=== PATIENT | male | born 1965 | race Caucasian/White ===

== ENCOUNTER 2022-04-07 22:43 | Emergency (ER) | payer BC, OTHER ==
[2022-04-07 22:51] VITALS: BP 140/100; PULSE 79; TEMP 98.4; BMI 30.8
== END 2022-04-07 23:43 | disposition home or self-care (01) ==
LOC: FER 22:43
PROC: 0HQGXZZ Repair Left Hand Skin, External Approach (ICD-10-PCS; principal; 2022-04-07)
DX: S61.412A Laceration without foreign body of left hand, initial encounter (principal); W26.8XXA Contact with other sharp object(s), not elsewhere classified, initial encounter
CPT/HCPCS: 99282-25